=== PATIENT | male | born 1965 | race Caucasian/White ===

== ENCOUNTER 2018-01-30 18:16 | Emergency (ER) | payer MEDICAID ==
[~2018-01-30] VITALS: Ht 170.2 cm; Wt 127.0 kg
[~2018-01-30 18:16] MED LIST: LISI40TA
[2018-01-30] MEDS ORDERED: cloNIDine HCL 0.1 MG TAB ONE (18:43)
[2018-01-30] MEDS ORDERED: cloNIDine HCL 0.1 MG TAB PO ONE (18:45)
[2018-01-30] MEDS ORDERED: ONDANSETRON HCL 4 MG/2 ML VIAL IV ONE (19:30)
[2018-01-30] MEDS ORDERED: MORPHINE SULFATE 4 MG/ML SYR/VIAL IV ONE (19:30)
[2018-01-30] MEDS ORDERED: SODIUM CHLORIDE 0.9% 1,000 ML IV ONE (19:30)
[2018-01-30] MEDS ORDERED: TRIAMCINOLONE 40MG/ML 1ML VIAL IX ONE (21:45)
[2018-01-30 23:05] VITALS: BP 129/79
== END 2018-01-30 23:32 | disposition home or self-care (01) ==
LOC: EDBD 18:16 → ER 18:21
DX: M48.14 Ankylosing hyperostosis [Forestier], thoracic region (principal); M48.04 Spinal stenosis, thoracic region; H66.90 Otitis media, unspecified, unspecified ear; I11.0 Hypertensive heart disease with heart failure; I50.9 Heart failure, unspecified; J44.9 Chronic obstructive pulmonary disease, unspecified; E78.5 Hyperlipidemia, unspecified; F17.210 Nicotine dependence, cigarettes, uncomplicated; F12.90 Cannabis use, unspecified, uncomplicated; F15.90 Other stimulant use, unspecified, uncomplicated
CPT/HCPCS: 20552; 72100; 72128; 72131; 94761; 96374; 96375; 99284; J2270; J2405; J3301